=== PATIENT | female | born 1965 | race Caucasian/White ===

== ENCOUNTER → 2019-02-19 08:45 | Outpatient (CLI) | payer BC, SELFPAY ==
--- NOTE | 2019-02-19 08:50 | MM_ITS ---
PROCEDURE: MM DIG SCREENING MAMM BI W/CAD Patient Age:53Y CLINICAL INDICATION: SCREENINGRoutine screening mammogram. 53-year-old but no hormones no new complaints Noncontributory family history COMPARISON: MMM DIGITAL SCRN BILAT INCL CAD from 06/27/2014 MMM DIGITAL SCRN BILAT INCL CAD from 12/09/2015 MMM DIGITAL SCRN BILAT INCL CAD from 12/17/2016 MMM DIGITAL DX UNILAT INCL CAD LEFT from 12/28/2016 MMM DIGITAL SCRN BILAT INCL CAD from 01/05/2018 Above prior outside studies from [facility]. TECHNIQUE: Standard CC and MLO images were obtained. R2 CAD reviewed. Additional nipple profile MLO views both right and left breasts included FINDINGS: None minimal residual fibroglandular elements are seen towards along the superior breast bilaterally. No new areas of significant concern. No dominant or suspicious mass but no suspicious calcifications . Bilateral follow-up 1 year recommended/adequate IMPRESSION: Stable bilateral mammogram. No new areas of concern. Bilateral follow-up 1 year recommended BI-RAD Category: 1 Negative FOLLOW-UP: 1YR 1 Year Follow-up (A letter has been sent to the patient regarding results of the study.) Dictated by: Ajit Mcclellan MD 03/01/2019 11:29 Electronically signed by Ajit Mcclellan MD in [place] 03/01/2019 11:29
== END ==
PROVIDERS: PCP Emergency Medicine; Visit Provider Emergency Medicine
DX: Z12.31 Encounter for screening mammogram for malignant neoplasm of breast (principal)
CPT/HCPCS: 77067

== ENCOUNTER → 2020-02-22 08:12 | Outpatient (CLI) | payer BC, SELFPAY ==
--- NOTE | 2020-02-22 08:23 | MM_ITS ---
PROCEDURE: MM DIG SCREENING MAMM BI W/CAD Digital Breast Tomosynthesis Included CLINICAL INDICATION: SCREENING There is no personal or family history of breast cancer. COMPARISON: MG MMM DIGITAL DX UNILAT INCL CAD LEFT from 12/28/2016 MG MMM DIGITAL SCRN BILAT INCL CAD from 01/05/2018 MG MM DIG SCREENING MAMM BI W/CAD from 02/19/2019 TECHNIQUE: Standard CC and MLO images and 3D Tomosynthesis was obtained. R2 CAD reviewed. FINDINGS: The breasts are composed primarily of fat with scattered fibroglandular densities seen throughout both breasts. The findings are bilateral and symmetrical. There is a benign-appearing calcification right breast. There is no suspicious lesion in either breast and no suspicious microcalcifications. IMPRESSION: Fibrofatty parenchyma with no suspicious lesions seen BI-RAD Category: 2 Benign Finding(s) FOLLOW-UP: 1YR 1 Year Follow-up (A letter has been sent to the patient regarding results of the study.) Dictated by: Dr. Jorge Mcdaniel MD 02/26/2020 13:35 Dr. Jorge Mcdaniel MD in [place] 02/26/2020 13:35
== END ==
PROVIDERS: PCP Nurse Practitioner Family; Visit Provider Nurse Practitioner Family
DX: Z12.31 Encounter for screening mammogram for malignant neoplasm of breast (principal)
CPT/HCPCS: 77063; 77067

== ENCOUNTER → 2021-03-05 10:41 | Outpatient (CLI) | payer BC, SELFPAY ==
--- NOTE | 2021-03-05 10:41 | MM_ITS ---
PROCEDURE: MM DIG SCREENING MAMM BI W/CAD Digital Breast Tomosynthesis Included CLINICAL INDICATION: screening xmg COMPARISON: MG MMM DIGITAL SCRN BILAT INCL CAD from 01/05/2018 MG MM DIG SCREENING MAMM BI W/CAD from 02/19/2019 MG MM DIG SCREENING MAMM BI W/CAD from 02/22/2020 TECHNIQUE: Standard CC and MLO images and 3D Tomosynthesis was obtained. R2 CAD reviewed. FINDINGS: There are scattered areas of fibroglandular density. No suspicious appearing mass, malignant-appearing microcalcification, architectural distortion, or skin thickening. No significant change IMPRESSION: No change with no evidence of malignancy. BI-RAD Category: 1 Negative FOLLOW-UP: 1 YR 1 Year Follow-up (A letter has been sent to the patient regarding results of the study.) Dictated by: Oli Bullard MD 03/05/2021 14:17 Oli Bullard MD in [place] 03/05/2021 14:17
[2021-03-05 14:47] LABS: Alanine Aminotransferase 26 U/L (12-78); Albumin Level 4.4 g/dl (3.5-5.0); Alkaline Phosphatase 72 U/L (38-126); Aspartate Amino Transferase 34 U/L (14-36); Bilirubin,Direct 0.5 mg/dl (0.0-0.4); Bilirubin,Total 1.5 mg/dl (0.2-1.3); Total Protein,Serum 7.5 g/dl (6.3-8.2)
== END ==
PROVIDERS: PCP Nurse Practitioner Family; Visit Provider Nurse Practitioner Obstetrics & Gynecology
DX: Z12.31 Encounter for screening mammogram for malignant neoplasm of breast (principal)
CPT/HCPCS: 77063; 77067; 80076

== ENCOUNTER → 2021-04-30 16:18 | Outpatient (CLI) | payer BC, SELFPAY | PROVIDERS: Visit Provider Nurse Practitioner | DX: Z20.822 Contact with and (suspected) exposure to COVID-19 (principal) | CPT/HCPCS: C9803; U0003; U0005 ==

== ENCOUNTER → 2022-01-07 09:36 | Outpatient (CLI) | payer BC, SELFPAY ==
[2022-01-07 10:03] LABS: Basophils # 0.1 K/mm3 (0-0.2); Basophils % 2.1 % (0.1-2.0); Eosinophils # 0.1 K/mm3 (0.0-0.4); Eosinophils % 0.8 % (0.1-12.0); Hematocrit 47.9 % (37.0-47.0); Hemoglobin 15.4 g/dL (12.2-16.2); Lymphocytes # 2.7 K/mm3 (0.7-4.5); Lymphocytes % 44.5 % (10-50); Mean Corpuscular HGB Conc 32.2 g/dL (31.8-35.4); Mean Corpuscular Hemoglobin 28.9 pg (27.0-31.2); Mean Corpuscular Volume 89.7 fl (81-99); Mean Platelet Volume 7.5 fl (7.4-10.4); Monocytes # 0.4 K/mm3 (0.1-1.0); Monocytes % 5.7 % (1.7-9.3); Neutrophils # 2.8 K/mm3 (1.8-7.8); Neutrophils % 46.8 % (37.0-80.0); Platelet Count 329 K/mm3 (142-424); Red Blood Count 5.34 M/mm3 (4.20-5.40); Red Cell Distribution Width 13.4 % (11.5-17.5); White Blood Count 6.1 K/mm3 (4.8-10.8)
[2022-01-07 10:32] LABS: Alanine Aminotransferase 61 U/L (12-78); Albumin Level 4.8 g/dl (3.5-5.0); Albumin/Globulin Ratio 1.5 (1.1-1.8); Alkaline Phosphatase 97 U/L (38-126); Anion Gap 11.5 mEq/L (5-15); Aspartate Amino Transferase 46 U/L (14-36); Bilirubin,Total 2.9 mg/dl (0.2-1.3); Blood Urea Nitrogen 14 mg/dl (7-17); Calcium 9.9 mg/dl (8.4-10.2); Carbon Dioxide 31 mmol/L (22.0-30.0); Chloride 101 mmol/L (98-107); Cholesterol 216 mg/dl (140-200); Estimated Glomerular Filt Rate 58 ml/min (>60); GFR (African American) 70 ML/MIN (>60); Globulin 3.2 g/dL (1.3-3.2); Glucose 90 mg/dl (74-100); Potassium 3.5 mmoL/L (3.5-5.1); Sodium 140 mmol/L (136-145)
== END ==
PROVIDERS: PCP Nurse Practitioner Family; Visit Provider Nurse Practitioner Obstetrics & Gynecology
DX: Z01.419 Encounter for gynecological examination (general) (routine) without abnormal findings (principal)
CPT/HCPCS: 36415; 80053; 82465; 85025

== ENCOUNTER → 2022-03-09 15:19 | Outpatient (CLI) | payer BC, SELFPAY ==
--- NOTE | 2022-03-09 15:20 | MM_ITS ---
PROCEDURE INFORMATION: Exam: MG Bilateral Screening 3D Mammography Exam date and time: 03/09/2022 3:21 PM Age: 56 years old Clinical indication: Screening mammogram TECHNIQUE: Imaging protocol: Bilateral Screening tomosynthesis and 2D mammography including computer-aided detection (CAD) when performed.Limited assessment due to difficulty positioning the patient. COMPARISON: 1. MG MM DIG SCREENING MAMM BI W/CAD 03/05/2021 10:45 AM 2. MG MM DIG SCREENING MAMM BI W/CAD 02/22/2020 8:28 AM 3. MG MM DIG SCREENING MAMM BI W/CAD 02/19/2019 9:10 AM 4. MG MMM DIGITAL SCRN BILAT INCL CAD 01/05/2018 8:05 AM FINDINGS: MAMMOGRAPHY: Breast composition: There are scattered areas of fibroglandular density. Mass: None. Architectural distortion: No new or suspicious architectural distortion. Calcifications: No new or suspicious calcifications are present Asymmetric density: No new or suspicious asymmetric density is present Skin thickening: None. Axillary adenopathy: None. IMPRESSION: No mammographic evidence of malignancy. Recommend annual screening mammography unless otherwise clinically indicated. ASSESSMENT: BI-RADS category 1: Negative
== END ==
PROVIDERS: PCP Nurse Practitioner Family; Visit Provider Nurse Practitioner Obstetrics & Gynecology
DX: Z12.31 Encounter for screening mammogram for malignant neoplasm of breast (principal)
CPT/HCPCS: 77063; 77067

== ENCOUNTER → 2023-02-09 08:48 | Outpatient (CLI) | payer BC, SELFPAY ==
--- NOTE | 2023-02-09 08:53 | US_ITS ---
FINAL REPORT TECHNIQUE: Sonographic images of the right upper quadrant were obtained. CLINICAL HISTORY: ELEVATED LFT S COMPARISON: None FINDINGS: PANCREAS: Unremarkable. LIVER: Diffuse increased echogenicity of the liver compatible with diffuse fatty infiltration. No focal hepatic lesion. No intrahepatic biliary ductal dilatation. GALLBLADDER: Gallstones are present. No gallbladder wall thickening or pericholecystic fluid. COMMON DUCT: 4.2 mm. Normal for age. RIGHT KIDNEY: The right kidney measures 11.1 cm. There is no hydronephrosis, mass, or stone. FREE FLUID: None. IMPRESSION: Diffuse fatty infiltration of the liver. Gallstones without pericholecystic fluid or gallbladder wall thickening. Reviewed, Interpreted and Dictated by Mercy Mckinney MD Transcribed by Jane Kimble Authenticated and . [facility]
== END ==
PROVIDERS: PCP Nurse Practitioner Family; Visit Provider Nurse Practitioner Family
DX: R79.89 Other specified abnormal findings of blood chemistry (principal)
CPT/HCPCS: 76705

== ENCOUNTER → 2023-03-11 09:39 | Outpatient (CLI) | payer BC, SELFPAY ==
--- NOTE | 2023-03-11 09:40 | MM_ITS ---
PROCEDURE INFORMATION: Exam: MG Bilateral Screening 3D Mammography Exam date and time: 03/11/2023 9:51 AM Age: 57 years old Clinical indication: Screening examination; No personal or family history of breast cancer TECHNIQUE: Imaging protocol: Bilateral Screening tomosynthesis and 2D mammography including computer-aided detection (CAD) when performed. COMPARISON: 1. MG MM DIG SCREENING MAMM BI W/CAD 03/09/2022 3:21 PM 2. MG MM DIG SCREENING MAMM BI W/CAD 03/05/2021 10:45 AM FINDINGS: MAMMOGRAPHY: Breast composition: There are scattered areas of fibroglandular density. Mass: None. Architectural distortion: None. Calcifications: No suspicious calcifications. Asymmetric density: None. Skin thickening: None. Axillary adenopathy: None. IMPRESSION: No mammographic evidence of malignancy. Annual screening is recommended unless otherwise clinically indicated. ASSESSMENT: BI-RADS Category 1: Negative
== END ==
PROVIDERS: PCP Nurse Practitioner Family; Visit Provider Nurse Practitioner Obstetrics & Gynecology
DX: Z12.31 Encounter for screening mammogram for malignant neoplasm of breast (principal)
CPT/HCPCS: 77063; 77067

== ENCOUNTER 2024-03-12 09:50 | Outpatient (CLI) | payer BC, SELFPAY ==
--- NOTE | 2024-03-12 09:54 | MM_ITS ---
PROCEDURE INFORMATION: Exam: MG Bilateral Screening 3D Mammography Exam date and time: 03/12/2024 9:37 AM Age: 58 years old Clinical indication: Screening. No family history of breast cancer. TECHNIQUE: Imaging protocol: Bilateral Screening tomosynthesis and 2D mammography including computer-aided detection (CAD) when performed. COMPARISON: 1. MG MM DIG SCREENING MAMM BI W/CAD 03/11/2023 9:51 AM 2. MG MM DIG SCREENING MAMM BI W/CAD 03/09/2022 3:21 PM 3. MG MM DIG SCREENING MAMM BI W/CAD 03/05/2021 10:45 AM 4. MG MM DIG SCREENING MAMM BI W/CAD 02/22/2020 8:28 AM FINDINGS: MAMMOGRAPHY: Breast composition: There are scattered areas of fibroglandular density. Mass: No suspicious mass. Architectural distortion: None. Calcifications: No suspicious calcifications. Asymmetric density: None. Skin thickening: None. Axillary adenopathy: None. IMPRESSION: No mammographic evidence of malignancy. Annual screening is recommended unless otherwise clinically indicated. ASSESSMENT: BI-RADS Category 1: Negative.
== END 2024-03-12 23:59 | disposition home or self-care (01) ==
LOC: RAD 09:50
PROVIDERS: PCP Nurse Practitioner Family; Visit Provider Nurse Practitioner Family
DX: Z12.31 Encounter for screening mammogram for malignant neoplasm of breast (principal)
CPT/HCPCS: 77063; 77067

== ENCOUNTER 2024-06-13 08:29 | Outpatient (CLI) | payer BC, SELFPAY ==
--- NOTE | 2024-06-13 08:29 | US_ITS ---
FINAL REPORT CLINICAL HISTORY: Elevated bilirubin COMPARISON: None FINDINGS: HEPATIC ULTRASOUND Multiple transverse and longitudinal scans were performed of the right upper quadrant of the abdomen. There is fatty infiltration of the liver. No intrahepatic duct dilatation is identified. No evidence of common bile duct dilatation is identified. Doppler exam shows normal directional flow within patent hepatic and portal veins. There are multiple gallstones noted. No evidence of perihepatic fluid is identified. Right kidney is unremarkable. IMPRESSION: Multiple gallstones. Reviewed, Interpreted and Dictated by Virgilio Purcell MD Transcribed by Andreia De Jesus Authenticated and [facility]
== END 2024-06-13 23:59 | disposition home or self-care (01) ==
LOC: RAD 08:29
PROVIDERS: PCP Nurse Practitioner Family; Visit Provider Nurse Practitioner Family
DX: R17 Unspecified jaundice (principal)
CPT/HCPCS: 76705

== ENCOUNTER 2024-06-18 14:10 | Outpatient (CLI) | payer BC, SELFPAY ==
[2024-06-18 14:36] LABS: Basophils % 0.7 % (0.1-2.0); Eosinophils % 0.7 % (0.1-12.0); Hematocrit 46.5 % (37.0-47.0); Hemoglobin 15.6 g/dL (12.2-16.2); Lymphocytes # 2.9 K/mm3 (0.7-4.5); Lymphocytes % 47.7 % (10-50); Mean Corpuscular HGB Conc 33.5 g/dL (31.8-35.4); Mean Corpuscular Hemoglobin 28.8 pg (27.0-31.2); Mean Corpuscular Volume 85.8 fl (81-99); Mean Platelet Volume 9.4 fl (7.4-10.4); Monocytes # 0.4 K/mm3 (0.1-1.0); Monocytes % 6.2 % (1.7-9.3); Neutrophils # 2.7 K/mm3 (1.8-7.8); Neutrophils % 44.5 % (37.0-80.0); Platelet Count 298 K/mm3 (142-424); Red Blood Count 5.42 M/mm3 (4.20-5.40); Red Cell Distribution Width 12.8 % (11.5-17.5); White Blood Count 6.1 K/mm3 (4.8-10.8)
[2024-06-18 15:00] LABS: Alanine Aminotransferase 32 U/L (12-78); Albumin Level 5.4 g/dl (3.5-5.0); Albumin/Globulin Ratio 2.2 (1.1-1.8); Alkaline Phosphatase 64 U/L (38-126); Anion Gap 14.9 mEq/L (5-15); Aspartate Amino Transferase 38 U/L (14-36); Bilirubin,Direct 0.2 mg/dl (0.0-0.4); Bilirubin,Indirect 2.3 mg/dL (0.0-0.9); Bilirubin,Total 2.5 mg/dl (0.2-1.3); Bilirubin,Unconjugated 2.3 mg/dL (0.0-1.1); Blood Urea Nitrogen 11 mg/dl (7-17); Calcium 10.1 mg/dl (8.4-10.2); Carbon Dioxide 29 mmol/L (22.0-30.0); Chloride 102 mmol/L (98-107); Estimated Glomerular Filt Rate 65 ml/min (>60); GFR (African American) 78 ML/MIN (>60); Globulin 2.5 g/dL (1.3-3.2); Glucose 93 mg/dl (74-100); Potassium 3.9 mmoL/L (3.5-5.1); Sodium 142 mmol/L (136-145); Total Protein,Serum 7.9 g/dl (6.3-8.2)
[2024-06-20 01:10] LABS: ALT (SGPT) P5P 26 IU/L (0-40); AST (SGOT) P5P 32 IU/L (0-40); Alpha 2-Macroglobulins, Qn 180 mg/dL (110-276); Apolipoprotein A-1 196 mg/dL (116-209); Bilirubin, Total 2.1 mg/dL (0.0-1.2); Cholesterol, Total 206 mg/dL (100-199); Fibrosis Score 0.25 (0.00-0.21); Fibrosis Stage F0-F1 (.); GGT 17 IU/L (0-60); Glucose 93 mg/dL (70-99); Haptoglobin 93 mg/dL (33-346); Steatosis Score 0.32 (0.00-0.40); Triglycerides 144 mg/dL (0-149)
== END 2024-06-18 23:59 | disposition home or self-care (01) ==
LOC: LAB 14:11
PROVIDERS: PCP Nurse Practitioner Family; Visit Provider Nurse Practitioner Family
DX: K76.0 Fatty (change of) liver, not elsewhere classified (principal)
CPT/HCPCS: 36415; 80053; 82247; 82248; 85025

== ENCOUNTER 2024-12-24 09:28 | Outpatient (CLI) | payer BC, SELFPAY ==
--- NOTE | 2024-12-24 09:33 | XR_ITS ---
FINAL REPORT CLINICAL HISTORY: abnormal findings, right hand pain COMPARISON: None FINDINGS: RIGHT HAND Three views show no evidence of acute displaced fracture or dislocation of the visualized bony architecture. No bony erosion is identified. There are moderate osteoarthritic changes of the PIP and DIP joint, most significantly involving the fifth digit. IMPRESSION: Osteoarthritic changes without acute abnormality. Reviewed, Interpreted and Dictated by Tracy Arias MD Transcribed by Andreia De Jesus Authenticated and [facility]
--- NOTE | 2024-12-24 09:33 | XR_ITS ---
FINAL REPORT CLINICAL HISTORY: ABNORMAL FINDINGS, hand pain COMPARISON: None FINDINGS: LEFT HAND Three views show no evidence of acute displaced fracture or dislocation of the visualized bony architecture. There are osteoarthritic changes of the DIP and PIP joints, overall moderate. There are erosive changes involving the third DIP joint. Generalized osteopenia is noted. IMPRESSION: Osteoarthritic disease. However, a component of erosive change is noted involving the third digit that could indicate a significant associated arthritic process or erosive osteoarthritis. Reviewed, Interpreted and Dictated by Tracy Arias MD Transcribed by Andreia De Jesus Authenticated and [facility]
[2024-12-24 10:22] LABS: Albumin Level 5.0 g/dl (3.5-5.0); Chloride 98 mmol/L (98-107); Potassium 4.0 mmoL/L (3.5-5.1); Sodium 140 mmol/L (136-145)
[2024-12-24 10:24] LABS: Blood Urea Nitrogen 12 mg/dl (7-17); Creatinine,Serum 0.80 mg/dl (0.52-1.04); Estimated Glomerular Filt Rate 74 ml/min (>60); GFR (African American) 89 ML/MIN (>60)
[2024-12-24 10:25] LABS: Alanine Aminotransferase 32 U/L (12-78); Albumin/Globulin Ratio 1.5 (1.1-1.8); Alkaline Phosphatase 65 U/L (38-126); Anion Gap 14.0 mEq/L (5-15); Aspartate Amino Transferase 39 U/L (14-36); Bilirubin,Total 2.7 mg/dl (0.2-1.3); Calcium 9.8 mg/dl (8.4-10.2); Carbon Dioxide 32 mmol/L (22.0-30.0); Globulin 3.4 g/dL (1.3-3.2); Glucose 109 mg/dl (74-100); Total Protein,Serum 8.4 g/dl (6.3-8.2)
== END 2024-12-24 23:59 | disposition home or self-care (01) ==
LOC: LAB 09:30
PROVIDERS: PCP Nurse Practitioner Family; Visit Provider Nurse Practitioner Family
DX: K76.0 Fatty (change of) liver, not elsewhere classified (principal); R93.7 Abnormal findings on diagnostic imaging of other parts of musculoskeletal system
CPT/HCPCS: 36415; 73130; 80053

== ENCOUNTER 2025-03-15 07:37 | Outpatient (CLI) | payer BC, SELFPAY ==
--- OUTSIDE RECORDS SUMMARY | 2024-01-23 06:15 | XMS_ITS ---
Author Organization [facility] [address] [facility] [address] [place] [id number] Care Team Providers Care Creative Producer Name Role Phone Joseluis Hough Primary Care Provider Christin Sylwia Unavailable [phone] Results Component Value Reference Range Notes CBC Venipuncture (in house) Reviewed date:01/24/2024 08:55:00 AM Interpretation: Performing Lab: Notes/Report: wbc 4.6 3.5 - 10 lymph 46.2 15 - 50 mid 5.3 2 - 15 gran 48.5 35 - 80 rbc 5.18 3.5 - 5.5 hgb 15.1 11.5 - 16.5 hct 45.1 35 - 55 mcv 87.0 75 - 100 mch 29.2 25 - 35 mchc 33.5 31 - 38 platlet 250 100 - 400 Cologuard Reviewed date:02/10/2024 11:54:32 AM Interpretation:Negative Performing Lab: Notes/Report: Negative Cologuard Negative P-Comprehensive Metabolic Pa veronica (CMP) Reviewed date:01/24/2024 11:08:15 AM Interpretation:Bili 3.4 Performing Lab: Notes/Report: Test performed by [employer] [address] [place] [address] , [address], [place] [address] Kwasi Queen MD, Chemical [employer] CLIA: [id number] Sodium 141 135-145 mmol/L Potassium 4.1 3.5-5.3 mmol/L Chloride 101 97-108 mmol/L CO2 29 22-32 mmol/L Glucose 92 65-99 mg/dL BUN 11 6-20 mg/dL Creatinine 0.87 0.50-1.00 mg/dL Calcium 10.0 8.6-10.4 mg/dL eGFR by Creatinine 78 >59 mL/min/1.73m2 Protein 7.9 6.0-8.3 g/dL Albumin 5.0 3.5-5.3 g/dL Alkaline Phosphatase 68 35-121 IU/L ALT (SGPT) 30 <5-47 IU/L AST (SGOT) 28 <5-40 IU/L Bilirubin, Total 3.4 <0.2-1.2 mg/dL A/G Ratio 1.7 1.1-2.5 P-Lipid Panel Reviewed date:01/24/2024 11:08:38 AM Interpretation:LDL 105; HDL 56; TG 115 Performing Lab: Notes/Report: Test performed by [facility], [address] , [facility], [place] [address] Kwasi Queen MD, Chemical Pack[employer] CLIA: [id number] Cholesterol 184 <200 mg/dL Triglycerides 115 <150 mg/dL HDL Cholesterol 56 >39 mg/dL Cholesterol / HDL Ratio 3.29 0.00-4.44 Ratio Non-HDL Cholesterol 128 <130 mg/dL LDL Cholesterol (Calculation) 105 <130 mg/dL LDL Cholesterol Levels* Less than 100 mg/dL Optimal 100 to 129 mg/dL Near Optimal/ Above Optimal 130 to 159 mg/dL Borderline High 160 to 189 mg/dL High 190 mg/dL and above Very High * Categories as recommended by the 2004 ATPIII guidelines LDL/HDL Ratio 1.9 <3.3 Ratio LDL Cholesterol Patient History Test Date: 01/23/2024 LDL Results: 105 Units: mg/dL % Change: - Mammogram Reviewed date:03/22/2024 08:53:56 AM Interpretation:Negative; annual f/u Performing Lab: Notes/Report: Negative; annual f/u REASON FOR VISIT fasting checkup, Needs labs & colon cancer screening Medications Medication SIG (Take, Route, Frequency, Duration) Notes Start Date End Date Status Flonase Allergy Relief 50 MCG/ACT 1 spray(s) intranasally once a day 01/17/2019 Active Metoprolol Succinate ER 50 MG 1 tab(s) orally once a day Active Crestor 20 MG 1 P.O. Q DAY *Please review a nd pick correct strength-formulatio n from [employer] options. If intended option is not shown, discontinue and re-order from Quick Search* Active Vital Signs Blood pressure systolic 120 mm Hg 01/23/20 24 Blood pressure diastolic 60 mm Hg 024 Heart Rate 60 /min 01/23/2024 Height 67 in 01/23/2024 Weight 169.4 lbs 01/23/2024 BMI 26.53 kg/m2 01/23/2024 Encounters Encounter Location Date Provider Diagnosis [facility] [address] [place] [id number] 01/23/2024 Sylwia Waller Colon cancer screeni Z12.11 ; Seasonal allergies J30.2 ; Hyperlipidemia, unspecified hyperlipidemia type E78.5 ; HTN (hypertension) I10 ; Breast cancer screening Z12.39 and Well adult exam Z00.00 Assessments Encounter Date Diagnosis (ICD Code) Assessment Notes Treatment Notes Treatment Clinical Notes Section Notes 01/23/2024 Colon cancer screening (ICD-10 - Z12.11) 01/23/2024 Seasonal allergies (ICD-10 - J30.2) 01/23/2024 Hyperlipidemia, unspecified hyperlipidemia type (ICD-10 - E78.5) 01/23/2024 HTN (hypertension) (ICD-10 - I10) 01/23/2024 Breast cancer screening (ICD-10 - Z12.39) 01/23/2024 Well adult exam (ICD-10 - Z00.00) Plan Of Treatment Medication Medication Name Sig Start Date Stop Date Notes Flonase Allergy Relief 50 MCG/ACT 1 spray(s) intranasally once a day 01/17/2019 Metoprolol Succinate ER 50 MG 1 tab(s) orally once a day Crestor 20 MG 1 P.O. Q DAY *Please r eview and pick correct strength-formulation from [employer] options. If intended option is not shown, discontinue and re-order from Quick Search* Next Appt Details Follow Up: 1 Year,and Joseluis diaz: Progress Notes * CARA CUEVASDOB:1965 (59 yo F)Acc No.[id number]:01/23/2024 Progress Notes Patient: CARA PALMA Provider: LOPEZ Pedraza :1965 A ge:58 Y S ex:Female Date:01/23/2024 Address:[address] [place] [address] Joseluis Echeverria [facility], [id number] Pcp:Joseluis Hough Subjective: * Chief Complaints: * 1 . Fasting checkup. 2. Needs labs & colon cancer screening. * HPI: H PI: 58 year old female presents with c/o Patient is here today for?Pt is here today for a fasting check up and a colon cancer screening. Pt sts she is fasting today. * ROS: A LLERGY: no C ough. n o R unny nose. G ASTROENTEROLOGY: no V omiting. n o D iarrhea. U ROLOGY: no B lood in urine. n o U rinary incontinence. * Medical History: H [place], HLP. * Family History: F ather: alive, diagnosed with Hypertension, Cancer. M other: alive, diagnosed with Hypertension. P aternal Grand Father: . P aternal Grand Mother: . M aternal Grand Father: . M aternal Grand Mother: , diagnosed with Heart Disease. 1 brother(s) , 1 sister(s) - healthy. 2 daughter(s) - healthy. . * Social History: C URRENT TOBACCO USE: No . C affeine: yes, frequency:unsweet tea. Home smoke detector use: yes. Marital Status: . * Medications: T aking Crestor 20 MG 1 P.O. Q DAY , Notes to Pharmacist: *Please review and pick correct strength-formulation from [employer] options. If intended option is not shown, discontinue and re-order from Quick Search*, Taking Flonase Allergy Relief 50 MCG/ACT Suspension 1 spray(s) intranasally once a day , Taking Metoprolol Succinate ER 50 MG Tablet Extended Release 24 Hour 1 tab(s) orally once a day , Medication List reviewed and reconciled with the patient Objective: * Vitals: W t:169.4, Temp:97.7, BP:120/60, HR:60, Nurse:MM, Ht: 67, BMI:26.53. * Examination: G eneral Examination: General Appearance: NAD, appears healthy, alert, pleasant, well nourished and hydrated. H EENT: sclera and conjunctiva clear, PERRLA, TM's normal, translucent. O ral cavity: mucosa moist and WNL, no erythema. N rocky: supple, no lymphadenopathy, no carotid bruits, thyroid normal. H eart: RRR. L ungs: CTAB A&P. A bdomen: bowel sounds present, soft and nontender, no organomegaly or masses, no guarding or rigidity. N eurologic Exam: alert and oriented. E xtremities: no leg edema. Assessment: * Assessment: 1. C olon cancer screening - Z12.11 (Primary) 2 . S easonal allergies - J30.2 3 . H yperlipidemia, unspecified hyperlipidemia type - E78.5 4 . H [place] (hypertension) - I10 5 . B reast cancer screening - Z12.39 ? 6 . W ell adult exam - Z00.00 Plan: * Treatment: Value Reference Range C ologuard Negative * Sylwia Waller 01/23/2024 1 2:44:28 PM > colon screenHlaima Blanco 01/27/2024 4:29:22 PM > order faxYasmin Thomas 02/10/2024 11:54:29 AM > , Patient informed of normal results. 2.?Seasonal allergies? Refill Flonase Allergy Relief Suspension, 50 MCG/ACT, 1 spray(s), intranasally, once a day, 1, Refills 3.?LAB: CBC Venipuncture (in house) (Collection Date & Time - 01/23/2024)* Value Reference Range w bc 4.6 3.5 - 10 * l ymph 46.2 15 - 50 * m id 5.3 2 - 15 * g ran 48.5 35 - 80 * r bc 5.18 3.5 - 5.5 * h gb 15.1 11.5 - 16.5 * h ct 45.1 35 - 55 * m cv 87.0 75 - 100 * m ch 29.2 25 - 35 * m chc 33.5 31 - 38 * p latlet 250 100 - 400 * Halima Blanco 01/23/2024 11:04 :56 AM > 3.?Hyperlipidemia, unspecified hyperlipidemia type? Continue Crestor, 20 MG, 1, P.O., Q DAY, Notes to Pharmacist: *Please review and pick correct strength-formulation from [employer] options. If intended option is not shown, discontinue and re-order from Quick Search*.?LAB: P-Lipid Panel (Collection Date & Time - 01/23/2024 09:55 AM)?LDL 105; HDL 56; TG 115* Value Reference Range C holesterol / HDL Ratio 3.29 0.00-4.44 - Ratio * C holesterol 184 <200 - mg/dL * H DL Cholesterol 56 >39 - mg/dL * L DL Cholesterol (Calculation) 105 <130 - mg/d L * L DL/HDL Ratio 1.9 <3.3 - Ratio * N on-HDL Cholesterol 128 <130 - mg/dL * T riglycerides 115 <150 - mg/dL * Sylwia Waller 01/24/2024 11:08:27 AM > , See encounter note 4.?HTN (hypertension)? Continue Metoprolol Succinate ER Tablet Extended Release 24 Hour, 50 MG, 1 tab(s), orally, once a day.?LAB: P-Comprehensive Metabolic Panel (CMP) (Collection Date & Time - 01/23/2024 09:55 AM)?Bili 3.4* Value Reference Range A /G Ratio 1.7 1.1-2.5 - * A lbumin 5.0 3.5-5.3 - g/dL * A lkaline Phosphatase 68 35-121 - IU/L * A LT (SGPT) 30 <5-47 - IU/L * A ST (SGOT) 28 <5-40 - IU/L * B ilirubin, Total 3.4 H <0.2-1.2 - mg/dL * B UN 11 6-20 - mg/dL * C alcium 10.0 8.6-10.4 - mg/dL * C hloride 101 97-108 - mmol/L * C O2 29 22-32 - mmol/L * C reatinine 0.87 0.50-1.00 - mg/dL * G lucose 92 65-99 - mg/dL * P otassium 4.1 3.5-5.3 - mmol/L * S odium 141 135-145 - mmol/L * P rotein 7.9 6.0-8.3 - g/dL * e GFR by Creatinine 78 >59 - mL/min/1.73m2 * Sylwia Waller 01/24/2024 11:04:09 AM > , See encounter note 5.?Breast cancer screening?Imaging: Mammogram (Performed Date - 03/12/2024)?Negative; annual f/u* Sylwia Waller 01/23/2024 1 2:46:21 PM > annual; due in Feb; needs a Tuesday or TuesdayDot Hernandez 01/23/2024 1:17:04 PM > faxed to Sylwia Corona 03/14/2024 10:40:15 AM > please report to pt Heike Nation 03/22/2024 8:53:25 AM > Pt informed * Procedure Codes: 8 5025 CBC WITH AUTO DIFF, 81641 VENIPUNCT, ROUTINE* * Follow Up: 1 Year,and prn * Images: Billing Information: * Visit Code: 43420 Preventive Care Est Pt Age 40-64. * Procedure Codes: 10942 CBC WITH AUTO DIFF. 22510 VENIPUNCT, ROUTINE*. * Electronic signature of Shari Waller APRN on 03/15/2025 at 07:39 AM EDT Sign off status: Pending * Provider: LOPEZ Pedraza Date: 0 01/23/2024 Generated for Arnaldo martinez/Robert/Leland on: 1 07:39 AM EDT History and Physical Notes * HPI (History of Present Illness) Category Sub-Category Detail Notes Category Not es HPI Patient is here today for Pt is here today for a fasting check up and a colon cancer screening. Pt sts she is fasting today Examination Category Sub-Category Detail Notes Category Not es General Examination HEENT: sclera and c onjunctiva clear, PERRLA, TM's normal, translucent Heart: RRR Lungs: CTAB A&P Abdomen: bowel sounds present , soft and nontender, no organomegaly or masses, no guarding or rigidity Extremities: no leg edema General Appearance: NAD, appears healthy , alert, pleasant, well nourished and hydrated Neurologic Exam: alert and oriented Neck: supple, no lymphaden opathy, no carotid bruits, thyroid normal Oral cavity: mucosa moist and WNL , no erythema
--- OUTSIDE RECORDS SUMMARY | 2024-05-01 06:45 | XMS_ITS ---
Author Organization [facility] Address [address] [facility] [address] [place] [id number] Care Team Providers Care Game Agent Name Role Phone Joseluis Hough Primary Care Provider Sylwia Waller Unavailable [phone] Allergies No Known Allergies Results Component Value Reference Range Notes Rapid Strep- Inhouse Reviewed date:05/01/2024 01:17:42 PM Interpretation:neg Performing Lab: Notes/Report: neg strep test neg CBC Fingerstick (in house) Reviewed date:05/01/2024 03:03:46 PM Interpretation: Performing Lab: Notes/Report: wbc 8.6 3.5 - 10 lym 29.1 15 - 50 mid 6.0 2 - 15 gran 64.9 35 - 80 rbc 4.99 3.5 - 5.5 hgb 14.4 11.5 - 16.5 hct 43.5 35 - 55 mcv 87.1 75 - 100 mch 29.0 25 - 35 mchc 33.3 31 - 38 plat 233 100 - 400 REASON FOR VISIT sore throat, coughing Medications Medication SIG (Take, Route, Frequency, Duration) Notes Start Date End Date Status Metoprolol Succinate ER 50 MG 1 tab(s) orally once a day; Duration: 90 days Active Pseudoeph-Bromphen- DM 30-1-20 MG/5ML 5 ml as needed Orally every 6 hrs prn 05/01/2024 Active Crestor 20 MG 1 P.O. Q DAY *Please review a nd pick correct strength-formulatio n from Medispan options. If intended option is not shown, discontinue and re-order from Quick Search* Active Flonase Allergy Relief 50 MCG/ACT 1 spray(s) intranasally once a day 01/17/2019 Active Vital Signs Blood pressure systolic 120 mm Hg 05/01/20 24 Blood pressure diastolic 70 mm Hg 024 Heart Rate 84 /min 05/01/2024 Height 67 in 05/01/2024 Weight 174.2 lbs 05/01/2024 BMI 27.28 kg/m2 05/01/2024 Encounters Encounter Location Date Provider Diagnosis [facility] [address] [place] [id number] 05/01/2024 Sylwia Waller URI (upper respirato ry infection) J06.9 Assessments Encounter Date Diagnosis (ICD Code) Assessment Notes Treatment Notes Treatment Clinical Notes Section Notes 05/01/2024 URI (upper respiratory infection) (ICD-10 - J06.9) resolving URI; sleep with head elevated; , gargles q2h while awake with hot salt water, fluids, rest, supportive measures for fever/symptom relief Plan Of Treatment Medication Medication Name Sig Start Date Stop Date Notes Bdqgxfouk-Xxnuvixa-VV 30-1-2 0 MG/5ML 5 ml as needed Orally every 6 hrs prn 05/01/2024 Treatment Notes Assessment Notes URI (upper respiratory infection) resolv ing URI; sleep with head elevated; , gargles q2h while awake with hot salt water, fluids, rest, supportive measures for fever/symptom relief Next Appt Details Follow Up: prn, Reason: Progress Notes * CARA CUEVASDOB:1965 (59 yo F)Acc No.[id number]:05/01/2024 Progress Notes Patient: CARA PALMA Provider: LOPEZ Pedraza :1965 A ge:58 Y S ex:Female Date:05/01/2024 Address:[address] [place] [address] [phone] Pcp:Joseluis Hough Subjective: * Chief Complaints: * 1 . Sore throat, coughing. * HPI: E NT/respiratory: 58 year old female presents with c/o sore throat P t sts her symptoms started a week ago. c/o cough. c/o rhinorrhea. c/o post nasal drainage.? c/o facial pain/pressure. Denies : Fever. D enies : ear pain. D enies : headache.?Denies : chest congestion. D enies : body aches. has tried OTC Tx; not sleeping; starting eating drinking yesterday. * ROS: A LLERGY: no C ough. [...] Marital Status: . * Medications: T aking Flonase Allergy Relief 50 MCG/ACT Suspension 1 spray(s) intranasally once a day , Taking Crestor 20 MG 1 P.O. Q DAY , Notes to Pharmacist: *Please review and pick correct strength-formulation from Medispan options. If intended option is not shown, discontinue and re-order from Quick Search*, Taking Metoprolol Succinate ER 50 MG Tablet Extended Release 24 Hour 1 tab(s) orally once a day , Medication List reviewed and reconciled with the patient * Allergies: N .K.D.A. Objective: * Vitals: W t:174.2, Temp:99.3, BP:120/70, HR:84, Nurse:DENITA, Ht: 67, BMI:27.28. * Examination: E NT/Respiratory: General Appearance: well nourished and hydrated, NAD, alert; no coughing during the visit. E yes: sclera and conjunctiva clear. E ars: auditory canals normal bilaterally, tympanic membranes normal bilaterally. S inuses : non tender bilaterally. O ral cavity : erythema without exudate on pharynx. N rocky : supple, no cervical lymphadenopathy. H eart : RRR. L ungs: CTAB A&P. ? Assessment: * Assessment: 1. U RI (upper respiratory infection) - J06.9 (Primary) Plan: * Treatment: * Labs: * L ab: Rapid Strep- Inhouse (Collection Date & Time - 05/01/2024) n eg Value Reference Range s trep test neg * Scarlett Rivero 05/01/2024 11:2 3:30 AM > , Provider reviewed results while patient in office.Sylwia Waller 05/01/2024 1:17:37 PM > ?Lab: CBC Fingerstick (in house) (Collection Date & Time - 05/01/2024)* Value Reference Range w bc 8.6 3.5 - 10 * l ym 29.1 15 - 50 * m id 6.0 2 - 15 * g ran 64.9 35 - 80 * r bc 4.99 3.5 - 5.5 * h gb 14.4 11.5 - 16.5 * h ct 43.5 35 - 55 * m cv 87.1 75 - 100 * m ch 29.0 25 - 35 * m chc 33.3 31 - 38 * p lat 233 100 - 400 * Scarlett Rivero 05/01/2024 11:2 8:43 AM > , Provider reviewed results while patient in office.Sylwia Waller 05/01/2024 3:03:42 PM > * Procedure Codes: 8 7880 STREP A ASSAY W/OPTIC, Modifiers: QW , 77703 CAPILLARY BLOOD DRAW, 30303 CBC WITH AUTO DIFF * Follow Up: p rn * Images: Billing Information: * Visit Code: 36173 Office Visit, Est Pt., Level 3. * Procedure Codes: 85910 STREP A ASSAY W/OPTIC. Modifiers: QW 43079 CAPILLARY BLOOD DRAW. 26168 CBC WITH AUTO DIFF. * Electronic signature of Shari Waller APRN on 03/15/2025 at 07:40 AM EDT Sign off status: Pending * Provider: LOPEZ Pedraza Date: 1 07/02/2023 Generated for Arnaldo martinez/Robert/eTdedrickitting on: 1 07:40 AM EDT History and Physical Notes * HPI (History of Present Illness) Category Sub-Category Detail Notes Category Not es ENT/respiratory sore throat Pt sts her symptoms start ed a week ago has tried OTC Tx; not sleeping; starting eating drinking yesterday facial pain/pressure ear pain cough Fever post nasal drainage headache chest congestion rhinorrhea body aches Examination Category Sub-Category Detail Notes Category Not es ENT/Respiratory Oral cavity : erythema without exudate on pharynx Sinuses : non tender bilateral ly Ears: auditory canals norm al bilaterally, tympanic membranes normal bilaterally Neck : supple, no cervical lymphadenopathy Heart : RRR Lungs: CTAB A&P General Appearance: well nourished and h ydrated, NAD, alert; no coughing during the visit Eyes: sclera and conjuncti va clear
--- OUTSIDE RECORDS SUMMARY | 2025-02-11 06:00 | XMS_ITS ---
Author Organization [facility] Address [address] [facility] [address] [place] [id number] Care Team Providers Care Clinical Nurse Educator Name Role Phone Joseluis Hough Primary Care Provider [phone] Sylwia Waller Unavailable [phone] Allergies No Known Allergies Results Component Value Reference Range Notes CBC Venipuncture (in house) Reviewed date:02/13/2025 02:12:42 PM Interpretation: Performing Lab: Notes/Report: wbc 5.4 3.5 - 10 lymph 37.7 15 - 50 mid 5.9 2 - 15 gran 56.4 35 - 80 rbc 5.06 3.5 - 5.5 hgb 14.8 11.5 - 16.5 hct 44.0 35 - 55 mcv 86.8 75 - 100 mch 29.3 25 - 35 mchc 33.7 31 - 38 platlet 304 100 - 400 P-Lipid Panel Reviewed date:02/13/2025 02:11:36 PM Interpretation:LDL 109; HDL 52; TG 130 Performing Lab: Notes/Report: Test performed by [facility] [address] [place] [address] , [address], [place] [address] Kwasi Queen MD, Senior Account Clerk CLIA: [id number] Cholesterol 187 <200 mg/dL Triglycerides 130 <150 mg/dL HDL Cholesterol 52 >39 mg/dL Cholesterol / HDL Ratio 3.60 0.00-4.44 Ratio Non-HDL Cholesterol 135 <130 mg/dL LDL Cholesterol (Calculation) 109 <130 mg/dL LDL Cholesterol Levels* Less than 100 mg/dL Optimal 100 to 129 mg/dL Near Optimal/ Above Optimal 130 to 159 mg/dL Borderline High 160 to 189 mg/dL High 190 mg/dL and above Very High * Categories as recommended by the 2004 ATPIII guidelines LDL/HDL Ratio 2.1 <3.3 Ratio LDL Cholesterol Patient History Test Date: 01/23/2024 LDL Results: 105 Units: mg/dL % Change: - Test Date: 02/11/2025 LDL Results: 109 Units: mg/dL % Change: +3% Reason For Referral Diagnosis 1 Polyarthralgia (M25. 50) Referral Organization [facility] Referring Provider First Name Sylwia Referring Provider Last Name Christin Referring Provider Speciality Family [facility] Referred Provider Rheumatology, . Referred Provider Specialty Rheumatology General Notes with Ariella soto ; can go on a MOn or Fri, Dot Hernandez 02/11/2025 11:09:58 AM > faxed to [facility] Rheumatology Referral Priority Routine REASON FOR VISIT annual visit, Needs labs, mammogram due the end of Feb., & flu vaccine Medications Medication SIG (Take, Route, Frequency, Duration) Notes Start Date End Date Status Crestor 20 MG 1 P.O. Q DAY *Please review a nd pick correct strength-formulati on from rankdesk options. If intended option is not shown, discontinue and re-order from Quick Search* Active Pseudoeph-Bromphen- DM 30-1-20 MG/5ML 5 ml as needed Orally every 6 hrs prn 05/01/2024 Not-Taking Metoprolol Succinate ER 50 MG 1 tablet Orally Once a day Active Fluticasone Propionate 50 MCG/ACT Use 1 spray(s) in each nostril once daily Active Immunizations Vaccine Route Administration Date Status Comme nts Fluzone Quad-Medicare (6months&older) IM Intramuscular 02/11/2025 Administered Problems Problem Type SNOMED Code ICD Code Onset Dates Problem Status W/U Status Risk Notes Problem Gilbert syndrome (92529807) Gilbert syndrome (E80.4) Active confirmed Vital Signs Blood pressure systolic 120 mm Hg 02/12/20 25 Blood pressure diastolic 76 mm Hg 025 Height 67 in 02/11/2025 Weight 167 lbs 02/11/2025 BMI 26.15 kg/m2 02/11/2025 Encounters Encounter Location Date Provider Diagnosis [facility] [address] [facility] [address] [place], [place] [id number] 02/11/2025 Sylwia Waller Seasonal allergies J30.2 ; HTN (hypertension) I10 ; Polyarthralgia M25.50 ; Elevated bilirubin R17 ; Gilbert syndrome E80.4 ; Screening for breast cancer Z12.39 ; Lipid screening Z13.220 ; Encounter for immunization Z23 and BMI 26.0-26.9,adult Z68.26 Assessments Encounter Date Diagnosis (ICD Code) Assessment Notes Treatment Notes Treatment Clinical Notes Section Notes 02/11/2025 Seasonal allergies (ICD-10 - J30.2) 02/11/2025 HTN (hypertension) (ICD-10 - I10) 02/11/2025 Polyarthralgia (ICD-10 - M25.50) with xray results cris refer to rheumatology 02/11/2025 Elevated bilirubin (ICD-10 - R17) continues to follow with with GI; lst visit notes reviewed 02/11/2025 Gilbert syndrome (ICD-10 - E80.4) 02/11/2025 Screening for breast cancer (ICD-10 - Z12.39) 02/11/2025 Lipid screening (ICD-10 - Z13.220) 02/11/2025 Encounter for immunization (ICD-10 - Z23) 02/11/2025 BMI 26.0-26.9,adult (ICD-10 - Z68.26) Plan Of Treatment Medication Medication Name Sig Start Date Stop Date Notes Crestor 20 MG 1 P.O. Q DAY *Please r eview and pick correct strength-formulation from rankdesk options. If intended option is not shown, discontinue and re-order from Quick Search* Metoprolol Succinate ER 50 MG 1 tablet Orally Once a day Fluticasone Propionate 50 MCG/ACT Use 1 spray(s) in each nostril once daily Treatment Notes Assessment Notes Polyarthralgia with xray results wi l refer to rheumatology Elevated bilirubin continues to follow with with GI; lst visit notes reviewed Pending Test Test Name Order Date Mammogram 02/11/2025 Referrals Referral Date Details 02/11/2025 02/11/2025, . Rheuma tology Next Appt Details Follow Up: 1 Year,and Joseluis diaz: Progress Notes * CARA CUEVASDOB:1965 (59 yo F)Acc No.[id number]:02/11/2025 Physical Patient: SANFORD PALMAELA Provider: LOPEZ Pedraza :1965 A ge:59 Y S ex:Female Date:02/11/2025 Address:[address] [place], [place] [address]JAMSHID GEE [id number] Pcp:Joseluis Hough Subjective: * Chief Complaints: * 1 . Annual visit. 2. Needs labs, mammogram due the end of Feb., & flu vaccine. * HPI: H PI: 59 year old female presents with c/o Patient is here today for?Pt is here today for a check up and labs. C ardiology: c/o Blood Pressure Elevated. c/o Hyperlipidemia P t is fasting today. * ROS: A LLERGY: no C ough. n o R unny nose. R ESPIRATORY: no S hortness of breath. n o C hest pain. C ough y es. C ARDIOLOGY: no C hest pain. n o P alpitations. n o L eg edema. n o S hortness of breath. E NT: Cough y es. n o S ore throat. G ASTROENTEROLOGY: no N ausea. n o V omiting. D iarrhea y es,?yesterday only; none today. U ROLOGY: no B lood in urine. n o U rinary incontinence. H PI 12/24/2024 from GI viit as follows: HPI Comments Details: This is a pleasanGI visit as followt 59-year-old female who was referred here for elevated bilirubin. She had labs with her primary care which noted a bilirubin elevated at 3.4, AST of 28, ALT of 30 and an alk phos of 68. Looking back on previous lab work in 2021 she had labs drawn that had a bilirubin of 2.9 and a slight elevation of her AST at 46 with normal ALT and alk phos. At that time she had a right upper quadrant ultrasound that noted diffuse fatty liver disease and cholelithiasis but no other abnormalities. In 2020 she had an slightly elevated bilirubin of 1.5 with normal AST ALT and alk phos. No family history of liver disease. She does not drink alcohol smoke or do drugs. Abdominal exam is benign. No hepatosplenomegaly. No family history of liver disease or liver cancer. Right upper quadrant ultrasound noted fatty liver but no signs of stricture or choledocholithiasis. She did have gallstones but that is unchanged over multiple imaging over several years. She denies any right upper quadrant pain or jaundice. Labs show bilirubin is all unconjugated consistent with Gilbert's syndrome. She did have a slight elevation of her AST at 38 and FibroSure estimates F0 to F1 with steatosis. Patient has been actively working on increasing her exercise and is trying to get between 14,000 and 18,000 steps per day. She is lost 2 pounds since last visit. Plan 1. Elevated bilirubin/Gilbert's/fatty liver Last labs show a bilirubin of 3.4 with normal AST ALT and alk phos at 28, 30, and 68 respectively. In 2021 she had a bilirubin of 2.9 and a slight bump in her AST of 46. Right upper quadrant ultrasound that time showed diffuse fatty liver disease and she did have some gallstones but no other abnormalities. Labs in 2020 showed bilirubin of 1.5. Right upper quadrant ultrasound showed expected fatty liver disease and continued gallstones. No choledocholithiasis strictures or other abnormalities. No abdominal pain. Recent labs showed elevated bilirubin 2.5, all unconjugated with a slight bump of AST at 38. ALT normal at 32 and alk phos 64. Patient is lost 2 pounds since last visit. We again discussed weight loss and exercise. She is working on increasing her step up per day to 14,000 18,000. Labs now and again in 6 months. * Medical History: H [place], HLP. * Family History: F ather: alive, diagnosed with Cancer, Hypertension. M other: alive, diagnosed with Hypertension. P [...] *Please review and pick correct strength-formulation from LiveLoopspan options. If intended option is not shown, discontinue and re-order from Quick Search*, Taking Metoprolol Succinate ER 50 MG Tablet Extended Release 24 Hour 1 tablet Orally Once a day , Taking Fluticasone Propionate 50 MCG/ACT Suspension Use 1 spray(s) in each nostril once daily , Not-Taking Mrldvxtql-Wrpilhkx-ZF 30-1-20 MG/5ML Liquid 5 ml as needed Orally every 6 hrs prn , Medication List reviewed and reconciled with the patient * Allergies: N .K.D.A. Objective: * Vitals: W t: 167, Temp: 98.6, BP: 120/76, Nurse: peri, Ht: 67, BMI:26.15. * Examination: G eneral Examination: General Appearance: N AD, appears healthy, alert, well nourished and hydrated. H EENT: s clera and conjunctiva clear, PERRLA, TM's normal, translucent.?Oral cavity: n ormal, mucosa moist and WNL, no erythema. N rocky: s upple, no lymphadenopathy, no carotid bruits, no thyromegaly. H eart: R RR. L ungs: C TAB A&P.?Abdomen: b owel sounds present, soft and nontender, no organomegaly or masses, no guarding or rigidity. N eurologic Exam: a lert and oriented. E xtremities: n o leg edema, Trev's nodes at PIP joints, Heberden's nodes at DIP joints. x rays reviewed that were ordered by Dermatology. X ray: Plain films right hand xray FINDINGS: RIGHT HAND Three views show no evidence of acute displaced fracture or dislocation of the visualized bony architecture. No bony erosion is identified. There are moderate osteoarthritic changes of the PIP and DIP joint, most significantly involving the fifth digit. IMPRESSION: Osteoarthritic changes without acute abnormality. 12/24/2024 left hand xray FINDINGS: LEFT HAND Three views show no evidence of acute displaced fracture or dislocation of the visualized bony architecture. There are osteoarthritic changes of the DIP and PIP joints, overall moderate. There are erosive changes involving the third DIP joint. Generalized osteopenia is noted. IMPRESSION: Osteoarthritic disease. However, a component of erosive change is noted involving the third digit that could indicate a significant associated arthritic process or erosive osteoarthritis.. L ABS: date of labs . C reatinine 0 .8. B UN?12. S odium 1 40. P otassium 4 .0. c hloride 9 8. C O2 3 2.?glucose 1 09. c alcium 9 .8. S GOT/SGPT 3 . a lk phos 6 5. t otal bilirubin 2 .7. a lbumin 5 . G FR 74. Assessment: * Assessment: 1. S easonal allergies - J30.2 (Primary) 2 . H TN (hypertension) - I10 3 . P olyarthralgia - M25.50 4 . E levated bilirubin - R17 ? 5 . G ilbert syndrome - E80.4 6 . S creening for breast cancer - Z12.39 7 . L ipid screening - Z13.220 8 . E ncounter for immunization - Z23 9 . B AL 26.0-26.9,adult - Z68.26 Plan: * Treatment: 2. H TN (hypertension) Continue Metoprolol Succinate ER Tablet Extended Release 24 Hour, 50 MG, 1 tablet, Orally, Once a day. L AB: CBC Venipuncture (in house) (Collection Date & Time - 02/11/2025) Value Reference Range w bc 5.4 3.5 - 10 * l ymph 37.7 15 - 50 * m id 5.9 2 - 15 * g ran 56.4 35 - 80 * r bc 5.06 3.5 - 5.5 * h gb 14.8 11.5 - 16.5 * h ct 44.0 35 - 55 * m cv 86.8 75 - 100 * m ch 29.3 25 - 35 * m chc 33.7 31 - 38 * p latlet 304 100 - 400 * Scarlett Rivero 02/11/2025 11:3 5:33 AM EDT >Sylwia Waller 02/13/2025 02:11:52 PM EDT >I spoke with pt and reported results 3.?Polyarthralgia? Notes: with xray results cris refer to rheumatology? Referral To:. Rheumatology??Rheumatology ?Reason: 4.?Elevated bilirubin? Notes: continues to follow with with GI; lst visit notes reviewed??5.?Screening for breast cancer?Imaging: Mammogram* Dot Hernandez 02/11/2025 10:5 3:22 AM EDT > faxed to [facility] Scheduling 6.?Lipid screening? Continue Crestor, 20 MG, 1, P.O., Q DAY, Notes to Pharmacist: *Please review and pick correct strength-formulation from Medispan options. If intended option is not shown, discontinue and re-order from Quick Search*.?LAB: P-Lipid Panel (Collection Date & Time - 02/11/2025 10:10 AM)?LDL 109; HDL 52; TG 130* Value Reference Range C holesterol / HDL Ratio 3.60 0.00-4.44 - Ratio * C holesterol 187 <200 - mg/dL * H DL Cholesterol 52 >39 - mg/dL * L DL Cholesterol (Calculation) 109 <130 - mg/d L * L DL/HDL Ratio 2.1 <3.3 - Ratio * N on-HDL Cholesterol 135 H <130 - mg/dL * T riglycerides 130 <150 - mg/dL * Sylwia Waller 02/13/2025 02:10:33 PM EDT >I spoke with pt and reported results ?LAB: CBC Venipuncture (in house) (Collection Date & Time - 02/11/2025)* Value Reference Range w bc 5.4 3.5 - 10 * l ymph 37.7 15 - 50 * m id 5.9 2 - 15 * g ran 56.4 35 - 80 * r bc 5.06 3.5 - 5.5 * h gb 14.8 11.5 - 16.5 * h ct 44.0 35 - 55 * m cv 86.8 75 - 100 * m ch 29.3 25 - 35 * m chc 33.7 31 - 38 * p latlet 304 100 - 400 * Scarlett Rivero 02/11/2025 11:3 5:33 AM EDT >Sylwia Waller 02/13/2025 02:11:52 PM EDT >I spoke with pt and reported results * Immunizations: Fluzone Quad-Medicare (6months&older) : 0.5 mL (Route: Intramuscular) given by PERI Plasencia on Left Deltoid (Encounter for immunization) * Procedure Codes: 8 5025 CBC WITH AUTO DIFF, 62343 VENIPUNCT, ROUTINE*, 1036F TOBACCO NON-USER, 3074F SYST BP LT 130 MM HG, 3078F DIAST BP < 80 MM HG, 3017F COLORECTAL CA SCREEN DOC REV * Preventive Medicine: Screening / Special Tests: M ammogram s cheduled for 03/15/25. C olonoscopy?Cologuard:, negative 02/01/24. * Follow Up: 1 Year,and prn * Images: Billing Information: * Visit Code: 03600 Office Visit, Est Pt., Level 4. * Procedure Codes: 74730 CBC WITH AUTO DIFF. 66818 VENIPUNCT, ROUTINE*. 1036F TOBACCO NON-USER. 3074F SYST BP LT 130 MM HG. 3078F DIAST BP < 80 MM HG. 3017F COLORECTAL CA SCREEN DOC REV. * Electronic signature of Shari nolan Christin , ELLIS on 03/15/2025 at 07:40 AM EDT Sign off status: Pending * Provider: LOPEZ Pedraza Date: 0 02/11/2025 Generated for Arnaldo martinez/Robert/Leland on: 1 07:40 AM EDT History and Physical Notes * HPI (History of Present Illness) Category Sub-Category Detail Notes Category Not es Cardiology Blood Pressure Elevated Hyperlipidemia Pt is fasting today HPI Patient is here today for Pt is here toda y for a check up and labs Examination Category Sub-Category Detail Notes Category Not es General Examination HEENT: sclera and c onjunctiva clear, PERRLA, TM's normal, translucent xrays reviewed that were ordered by Dermatology Heart: RRR Lungs: CTAB A&P Abdomen: bowel sounds present , soft and nontender, no organomegaly or masses, no guarding or rigidity Extremities: no leg edema, Boucha rd's nodes at PIP joints, Heberden's nodes at DIP joints General Appearance: NAD, appears healthy , alert, well nourished and hydrated Neurologic Exam: alert and oriented Neck: supple, no lymphaden opathy, no carotid bruits, no thyromegaly Oral cavity: normal, mucosa moist and WNL, no erythema LABS Creatinine 0.8 GFR 74 SGOT/SGPT 39/32 glucose 109 Potassium 4.0 Sodium 140 BUN 12 calcium 9.8 chloride 98 CO2 32 alk phos 65 total bilirubin 2.7 albumin 5 date of labs 12/24/2024 X ray Plain films 12/24/2024 right hand xray FINDINGS: RIGHT HAND Three views show no evidence of acute displaced fracture or dislocation of the visualized bony architecture. No bony erosion is identified. There are moderate osteoarthritic changes of the PIP and DIP joint, most significantly involving the fifth digit. IMPRESSION: Osteoarthritic changes without acute abnormality. 12/24/2024 left hand xray FINDINGS: LEFT HAND Three views show no evidence of acute displaced fracture or dislocation of the visualized bony architecture. There are osteoarthritic changes of the DIP and PIP joints, overall moderate. There are erosive changes involving the third DIP joint. Generalized osteopenia is noted. IMPRESSION: Osteoarthritic disease. However, a component of erosive change is noted involving the third digit that could indicate a significant associated arthritic process or erosive osteoarthritis. Consultation Request Notes Referral Date Referring Provider Referred Provider Not es 02/11/2025 Sylwia Waller Rheumatology, .
--- NOTE | 2025-03-15 07:40 | MM_ITS ---
PROCEDURE INFORMATION: Exam: MG Bilateral Screening 3D Mammography Exam date and time: 03/15/2025 8:03 AM Age: 59 years old Clinical indication: Screening. No family history of breast cancer. TECHNIQUE: Imaging protocol: Bilateral Screening tomosynthesis and 2D mammography including computer-aided detection (CAD) when performed. COMPARISON: 1. MG MM DIG SCREENING MAMM BI W/CAD 03/12/2024 9:37 AM 2. MG MM DIG SCREENING MAMM BI W/CAD 03/11/2023 9:51 AM 3. MG MM DIG SCREENING MAMM BI W/CAD 03/09/2022 3:21 PM 4. MG MM DIG SCREENING MAMM BI W/CAD 03/05/2021 10:45 AM FINDINGS: MAMMOGRAPHY: Breast composition: There are scattered areas of fibroglandular density. Mass: None. Architectural distortion: None. Calcifications: No suspicious calcifications. Asymmetric density: None. Skin thickening: None. Axillary adenopathy: None. IMPRESSION: No mammographic evidence of malignancy. Annual screening is recommended unless otherwise clinically indicated. ASSESSMENT: BI-RADS Category 1: Negative.
--- OUTSIDE RECORDS SUMMARY | 2025-03-15 07:40 | XMS_ITS | Patient Health Record ---
Author Organization [facility] Address [address] [place] [id number] Care Team Providers Care Wine Consultant Name Role Phone Gianluca Joseluis Vinson Primary Care Provider [phone] Sylwia Waller Unavailable [phone] Allergies No Known Allergies Results Component Value Reference Range Notes CBC Fingerstick (in house) Reviewed date:05/01/2024 03:03:46 [...] - 38 plat 233 100 - 400 Rapid Strep- Inhouse Reviewed date:05/01/2024 01:17:42 PM Interpretation:neg Performing Lab: Notes/Report: neg strep test neg CBC Venipuncture (in house) Reviewed date:02/13/2025 02:12:42 [...] 130 Performing Lab: Notes/Report: Test performed by [facility] [employer] [address] [place] [address] , [place] [address] Kwasi Queen MD, Bottle Line Worker [facility]: [id number] Cholesterol 187 <200 mg/dL Triglycerides 130 <150 [...] Diagnosis 1 Polyarthralgia (M25. 50) Referral Organization [facility] Referring Provider First Name Sylwia Referring Provider Last Name Christin Referring Provider Speciality Family Elizabeth nguyễnice Referred Provider Rheumatology, . Referred Provider Specialty Rheumatology General Notes with Ariella soto ; can go on a MOn or Fri, Dot Hernandez 02/11/2025 11:09:58 AM > faxed to [facility] Rheumatology Referral Priority Routine Medications Medication SIG (Take, Route, Frequency, Duration) Notes Start Date End Date Status Crestor 20 MG 1 P.O. Q DAY *Please review a nd pick correct strength-formulati on from [employer]life options. If intended option is not shown, discontinue and re-order from Quick Search* Active Pseudoeph-Bromphen- DM 30-1-20 MG/5ML 5 ml as needed Orally every 6 hrs prn 05/01/2024 Not-Taking Metoprolol Succinate ER 50 MG 1 tablet Orally Once a day; Duration: 30 days Active Fluticasone Propionate 50 MCG/ACT Use 1 spray(s) in each nostril once daily Active Immunizations Vaccine Route Administration Date Status Comme nts COVID 19 Moderna Unknown 07/28/2020 Administered COVID 19 Moderna Unknown 08/25/2020 Administered COVID 19 Moderna Unknown 04/16/2021 Administered DT, 7 YEARS OR OLDER Unknown 01/18/1997 Administered Fluzone PF Quad (6-35 months) Unknown 01/28/2017 Administered Fluzone PF Quad (6-35 months) Unknown 02/23/2019 Administered Fluzone PF Quad (6-35 months) Unknown 02/15/2020 Administered Fluzone PF Quad (6-35 months) Unknown 01/31/2021 Administered Fluzone PF Quad (6-35 months) Unknown 02/16/2022 Administered Fluzone Quad-Medicare (6months&older) IM Intramuscular 02/11/2025 Administered Hepatitis A (adult) IM Intramuscular 02/11/2020 Administer ed Shingrix Unknown 09/19/2018 Administered Tetanus Tdap-Adacel (over 7yrs) Unknown 01/28/2017 Administered xFlu shot- 6months-36 months of hfn-MVUH-RPGC-trivalent Unknown 02/06/2016 Administered Problems Problem Type SNOMED Code ICD Code Onset Dates Problem Status W/U Status Risk Notes Problem Essential hypertension (84215286) Essential (primary) hypertension (I10) Active confirmed Problem Hypertension (10406499) HTN (hypertension) (I10) Active confirmed Problem Seasonal allergy (784084810) Seasonal allergies (J30.2) Active confirmed Problem Gilbert syndrome (69413620) Gilbert syndrome (E80.4) Active confirmed Problem Hyperlipidaemia (72084354) Hyperlipidemia, unspecified hyperlipidemia type (E78.5) Active confirmed Vital Signs Heart Rate 84 /min 05/01/2024 Blood pressure diastolic 76 mm Hg 02/11/2025 Height 67 in 02/11/2025 Blood pressure systolic 120 mm Hg 02/11/2025 Weight 167 lbs 02/11/2025 BMI 26.15 kg/m2 02/11/2025 Encounters Encounter Location Date Provider [facility] [address] [place] [address] [place], [place] [id number] 05/01/2024 Sylwia Waller URI (upper respirato ry infection) J06.9 [facility] [address] [place], [place] [id number] 02/11/2025 Sylwia Waller Seasonal allergies J30.2 ; HTN (hypertension) I10 ; Polyarthralgia M25.50 ; Elevated bilirubin R17 ; Gilbert syndrome E80.4 ; Screening for breast cancer Z12.39 ; Lipid screening Z13.220 ; Encounter for immunization Z23 and BMI 26.0-26.9,adult Z68.26 [facility] [address] [place] [address] [place] [id number] 02/18/2025 Sylwia Waller Assessments Encounter Date Diagnosis (ICD Code) Assessment Notes Treatment Notes Treatment Clinical Notes Section Notes 05/01/2024 URI (upper respiratory infection) (ICD-10 - J06.9) resolving URI; sleep with head elevated; , gargles q2h while awake with hot salt water, fluids, rest, supportive measures for fever/symptom relief 02/11/2025 HTN (hypertension) (ICD-10 - I10) 02/11/2025 Seasonal allergies (ICD-10 - J30.2) 02/11/2025 Polyarthralgia (ICD-10 - M25.50) with xray [...] 26.0-26.9,adult (ICD-10 - Z68.26) Plan Of Treatment Pending Test Test Name Order Date Mammogram 02/11/2025 Insurance Providers Payer Name Payer Address Payer Phone Subscriber Number Group Number Insured Name Patient Relationship to Insured Coverage Start Date Coverage End Date [employer] [address] [place] [address] [id number] CARA SEGUNDO Self - patient is the insured Medical (General) History Medical History History ICD Code HTN HLP Surgical History Surgery Date(Month/Year)
== END 2025-03-15 23:59 | disposition home or self-care (01) ==
LOC: RAD 07:37
PROVIDERS: PCP Nurse Practitioner Family; Visit Provider Nurse Practitioner Family
DX: Z12.31 Encounter for screening mammogram for malignant neoplasm of breast (principal); R92.323 Mammographic fibroglandular density, bilateral breasts
CPT/HCPCS: 77063; 77067